=== PATIENT | male | born 1950 | race Caucasian/White ===

== ENCOUNTER 2017-05-07 05:23 | Inpatient (IN) | payer OTHER ==
[2017-05-02 10:33] LABS: HEMOGLOBIN 15.5 gm/dL (14.0-18.0); MCH 30.9 pg (26.0-34.0); MCHC 33.8 g/dL (28.0-37.0); MCV 91.6 fL (80.0-100.0); RBC 5.02 mil/uL (4.50-6.00); RDW 12.7 % (10.5-14.5); WBC 6.7 thou/uL (4.0-11.0)
[2017-05-02 10:42] LABS: CALCIUM 9.8 mg/dL (8.5-10.1); CREATININE 1.1 mg/dL (0.7-1.3)
[2017-05-02 10:42] LABS: URINE BILIRUBIN NEGATIVE (Negative); URINE BLOOD NEGATIVE (Negative); URINE CLARITY CLEAR; URINE COLOR YELLOW; URINE GLUCOSE-RANDOM* NEGATIVE (Negative); URINE KETONES NEGATIVE (Negative); URINE LEUKOCYTES-REFLEX NEGATIVE (Negative); URINE NITRITE-REFLEX NEGATIVE (Negative); URINE PROTEIN (DIPSTICK) NEGATIVE (Negative); URINE SPECIFIC GRAVITY <= 1.005 (1.005-1.035); URINE UROBILINOGEN 0.2 E.U./dl (0.2-1.0)
[2017-05-02 10:46] LABS: PROTIME 9.8 Seconds (9.3-11.4)
[2017-05-07] VITALS (10 sets, daily range): BP systolic 92–119; BP diastolic 52–81
[~2017-05-07] VITALS: Ht 180.3 cm; Wt 91.6 kg
--- NOTE | ~2017-05-07 | O ---
[facility] [place] [address] OPERATIVE REPORT Name: ALEEISADORA Boo Room #: 408-P [facility] IN M.R.#: [id number] Admission: 05/07/17 Attend Phys: Adrian Palomares Discharge: 05/09/17 Date of : 46 Report #: [id number] THIS REPORT FOR: //name// CC: PATRICE physician/PCP Adrian CHAN DATE OF SERVICE: 05/07/2017 PREOPERATIVE DIAGNOSES: Left shoulder pain, osteoarthritis, biceps tendinopathy, retained hardware from prior instability repair. POSTOPERATIVE DIAGNOSIS: Left shoulder osteoarthritis, biceps tendinopathy and long head of biceps tendon tear and subluxation, upper border tear of the subscapularis, full thickness, retained hardware in the glenoid from prior instability repair. PROCEDURE PERFORMED: Left total shoulder arthroplasty with open biceps tenodesis, removal of hardware, rotator cuff repair of the upper border tear of the subscapularis. SURGEON: Adrian Lr M.D. APPLICATION SECURITY ARCHITECT: Roberta Rai PA-C. ANESTHESIA: General. FLUIDS: 1200 mL crystalloid. ESTIMATED BLOOD LOSS: Approximately 150 mL. DESCRIPTION OF PROCEDURE: After proper identification of the patient and operative site in preoperative holding area, the operative site was signed by myself. Prophylactic antibiotics given. The patient elected to receive an interscalene block after reviewing the risks, benefits, alternatives and potential complications with Anesthesia. After induction of satisfactory general endotracheal anesthesia, the left shoulder was examined. Its limited range of motion was comparable to the preoperative assessment. Joint was otherwise stable. He was positioned in the beach chair position with head of bed elevated approximately 40 degrees. The left shoulder was then sterilely prepped and draped in the usual manner. Final skin draping was with Ioban. A LookUP limb positioning system was utilized throughout the entire procedure. Qualified anesthetic assistant was utilized throughout the entire procedure to aid in patient limb positioning, visualization and retraction of the soft tissues, [address] [address] OPERATIVE REPORT Name: ISADORA VICKERS Room #: 408-P [facility] IN M.R.#: [id number] Admission: 05/07/17 Attend Phys: Adrian Palomares Discharge: 05/09/17 Date of : 46 Report #: [id number] instrument passage closure and sling and dressing application. Anterior deltopectoral approach was planned. Portion of the previous incision was utilized. Skin was incised sharply. Full thickness skin flaps were developed. Deltopectoral interval was identified. There appeared to be no cephalic vein in this region likely due to his prior surgery. This plane was carefully released. Subdeltoid adhesions were carefully released bluntly so a Ball deltoid retractor could be placed. At this point, long head of biceps tendon was identified, significant tenosynovitis was present around it. The tendon sheath was opened. There is longitudinal tearing of the tendon and it had subluxed over the upper border of the subscapularis and a full thickness subscapularis tear was noted. The subscap integrity was such that this could be repaired, and the plan will be to continue to proceed with total shoulder replacement. This did not appear to be compromised to the point that it would require something such as the reverse total shoulder. Long head of biceps tendon was tenodesed to the undersurface of the upper border of the pectoralis major. Proximal end of the stump was followed up into the rotator interval, which was carefully opened. Thickening of the subscapularis and capsular tissue was noted more medially where the subscap tendon itself appeared more thin as it approached the tuberosity. The portion that was attached to the tuberosity, a lesser tuberosity osteotomy was still performed, and the inferior capsule was carefully released off the humeral head. Tag stitch was then placed on the subscapularis. From fraying and thickening of the capsule was carefully excised under direct visualization. The axillary nerve was identified and protected throughout the entire procedure. Humeral head osteophytes were noted. Full thickness chondral loss was appreciated on both sides of the joint. Supraspinatus, infraspinatus and teres minor appeared intact. At this point, a humeral head osteotomy was planned at 135 degrees. Cutting template was utilized. Soft tissues were protected. The patient had nearly 30 degrees of retroversion, and the humeral head cut was positioned in this manner. Humeral head measured approximately 48 x 18 mm, which was comparable to his preoperative templating, which was within the region of his preoperative templating. The cuff was otherwise intact. Stem was prepared with hand reaming up to a size 10 stem, which had good cortical purchase distally. A size 10 broach was carefully inserted. Protection plate was applied to the proximal humerus, and the shoulder was reduced and distracted with lamina development intern. At this point, the labrum was removed circumferentially. Remaining biceps tendon was removed. Inferior capsule was carefully released at its junction of the glenoid to aid in exposure. Anterior capsule was carefully divided off the subscapularis, and an anterior Bankart retractor was placed. One of the aleksandr was apparent and right along the articular margin with minimal amount of careful curetting and small osteotome, the remaining bone could be removed, so it was exposed to the point that a fine tip Vise lock type pliers could be applied and was then utilized to carefully extract this in its entirety. The second staple was more medially based, had some bone overgrowing this, and this was carefully exposed and removed in its entirety. The glenoid integrity of the anterior inferior [facility] [address] [place] [address] OPERATIVE REPORT Name: ISADORA VICKERS Boo Room #: 408-P [facility] IN M.R.#: [id number] Admission: 05/07/17 Attend Phys: Adrian Palomares Discharge: 05/09/17 Date of : 46 Report #: [id number] corner otherwise appear intact. The patient did have some mild posterior glenoid wear, but this appeared to be correctable with anterior reaming. This did not appear to require augmentation with a STEPTECH type glenoid. With +3 glenoid guide, this was positioned. The guide pin was inserted into the glenoid in satisfactory position. The guide pin appeared to be placed centrally and in good position. Some peripheral osteophytes around the glenoid were carefully removed and the glenoid face was reamed. There appeared to be a good glenoid reaming down to the subchondral bone that also incorporated the posterior wear. Care was taken to not ream too excessively. Next, the step drill was utilized and then the multipin guide with derotation pegs were used to drill the peripheral pegs. Trial 44 glenoid appeared to fit better than a trial 48. The 48 appeared to have some slight motion at this. The drill holes were drilled again, and of the glenoid face appeared to be satisfactorily reamed, and the glenoid was prepared for a 44 mm implant. Peripheral pegs had been dried with FloSeal, which was then removed, irrigated. Cement was prepared on the back table in a teres syringe and after the glenoid had been thoroughly suctioned and dried, all drill holes were contained. Peripheral pegs were cemented, and trial 44 had previously fit well prior to the cement insertion. Glenoid implant that was bone grafted, had been positioned. There appeared to be slight motion and toggling but was not acceptable for the glenoid. Implant was removed immediately. The cement was then removed by hand with curette. While this was still softened and trial implants were placed again, and it appeared that there was just a slight motion with a 44 mm glenoid more noticeable on the 48. Drill holes were again redone, all the more contained and there was still slight motion, so it was felt that the glenoid face, must have some slight irregularity. There was no soft tissue impingements, so the glenoid face was reamed until it was noted that the reamer had good and contact circumferentially when looking at its blades. This area was irrigated. All drill holes and peripheral pegs were carefully drilled again. Again, all were contained, after this, was thoroughly irrigated. Cement was again placed in the peripheral pegs. The trial implants previously utilized, fit well with no motion or toggling and the second 44 mm glenoid was carefully impacted into position at the central peg had been bone grafted. It was fully seated. There was no motion and had excellent stability, this was held until the cement was cured. Next, the humerus was reduced over the glenoid ____ was used to protect this, and the trial implant was assembled 44 x 18 mm eccentric humeral head, provided the best overall recreation of the proximal humeral anatomy. It was reduced, had good anterior, posterior translation and the trial implants were removed. Drill holes were placed in the anterior cortex of the humerus. A size 10 osteotome Globly al Unite system was inserted. The patient had excellent humeral e bone quality. At this point, a size 10, Global Unite stem with a 35 degree metaphysis neck portion was assembled. Four #2 FiberWires were placed through the humerus with the inferior 2 sutures were wrapped around the stem. This was carefully impacted into position and a 48 x 18 eccentric humeral head was carefully positioned and then impacted. There was excellent stability of satisfactory alignment of proximal humeral anatomy. Shoulder was reduced. It [facility] [address] [place] [address] OPERATIVE REPORT Name: ISADORA VICKERS Boo Room #: 408-P [facility] IN M.R.#: [id number] Admission: 05/07/17 Attend Phys: Adrian Palomares Discharge: 05/09/17 Date of : 46 Report #: [id number] was thoroughly irrigated with normal saline. Subscapularis was reduced. The Four #2 FiberWires were used to repair the lesser tuberosity osteotomy and the upper border tear of the subscapularis. A#2 FiberWires used to close the lateral portion of the rotator interval. The joint was again thoroughly irrigated and then 1 gram of vancomycin powder was placed within the wound half deep half more superficial. Deltopectoral interval was closed with #1 Vicryl, 2-0 Vicryl, the subcutaneous tissues final skin closure was with a running Monocryl stitch which was then sealed with Dermabond. Sterile dressing was applied. The patient will be immobilized in a sling and abduction pillow for 4 weeks postoperatively. <ELECTRONICALLY SIGNED> By: Adrian Lr MD 06/06/17 1514 [id number] Adrian Lr MD /nt
[~2017-05-07 05:23] MED LIST: ADULT LOW DOSE81 MG PO; ALLERGY10 M1 PO; COREG6.25 MG PO; FLAX SEED OIL1000 MG PO; FLOMAX PO; GLUCOSAMINE &1 EAC1 PO; HYDROCODON-ACE1 EACH PO; HYTRIN 2MG CAPSU2 M1 PO; HYTRIN10 MG PO; JUICE PLUS PO; LIPOFLAVONOID1 EACH PO; LISINOPRIL10 MG PO; MOBIC15 MG PO; NAPROSYN500 MG PO; NORCO 5-325 TA1 EACH PO; RELAFEN750 MG PO; ZOFRAN ODT4 MG PO
[2017-05-08 03:30] VITALS: BP 101/59
[2017-05-08 05:13] LABS: HEMATOCRIT 37.7 % (42.0-52.0); HEMOGLOBIN 12.6 gm/dL (14.0-18.0)
[2017-05-08 05:24] LABS: POTASSIUM 4.3 mmol/L (3.5-5.1)
[2017-05-08 09:39] VITALS: BP 101/45
[2017-05-08 19:21] VITALS: BP 113/59
[2017-05-09] VITALS: BP 116/71
[2017-05-09 04:00] VITALS: BP 104/52
[2017-05-09 07:13] VITALS: BP 98/61
[2017-05-09 14:56] VITALS: BP 98/61
== END 2017-05-09 18:55 | disposition home or self-care (01) | DRG 483 ==
LOC: 4N 05:23 → TBA 05:23 → PRE 05:37 → 4N 12:23 → PRE 14:35 → ENTRNSPT 05-09 16:26 → 4N 05-09 18:55
PROVIDERS: Orthopaedic Surgery Sports Medicine; Physician Assistant Surgical
PROC: 0RRK0JZ Replacement of Left Shoulder Joint with Synthetic Substitute, Open Approach (ICD-10-PCS; principal; 2017-05-07)
PROC: 0LS40ZZ Reposition Left Upper Arm Tendon, Open Approach (ICD-10-PCS; principal; 2017-05-07)
PROC: 0LM20ZZ Reattachment of Left Shoulder Tendon, Open Approach (ICD-10-PCS; principal; 2017-05-07)
PROC: 3E0T3BZ Introduction of Anesthetic Agent into Peripheral Nerves and Plexi, Percutaneous Approach (ICD-10-PCS; 2017-05-07)
DX: M19.012 Primary osteoarthritis, left shoulder (principal); S46.112A Strain of muscle, fascia and tendon of long head of biceps, left arm, initial encounter; S43.002A Unspecified subluxation of left shoulder joint, initial encounter; X58.XXXA Exposure to other specified factors, initial encounter; Z91.040 Latex allergy status; Z88.0 Allergy status to penicillin; Z91.09 Other allergy status, other than to drugs and biological substances; Y93.89 Activity, other specified; Y92.89 Other specified places as the place of occurrence of the external cause; Y99.8 Other external cause status; Z28.21 Immunization not carried out because of patient refusal
CPT/HCPCS: 10790; 50010; 50101; 50172; 50386; 50417; 50612; 50697; 50733; 50935; 51751; 51771; 52138; 53000; 53078; 54118; 55435; 56521; 56524; 56525; 56526; 56530; 57095; 62110; 62900; 64039; 70005